=== PATIENT | male | born 1935 | race Caucasian/White ===

== ENCOUNTER 2019-03-19 00:33 | Inpatient (IN) | payer OTHER ==
[~2019-03-19] VITALS: Ht 170.2 cm; Wt 61.6 kg
--- NOTE | ~2019-03-19 | D ---
[facility] [place] [address] DISCHARGE SUMMARY Name: MICHELLE SPRINGER Room #: 354-P ADM IN M.R.#: [id number] Admission: 03/19/19 Attend Phys: Betty Mendieta Discharge: Date of : 39 Report #: [id number] THIS REPORT FOR: //name// CC: James Lynch FINAL DIAGNOSES: 1. Acute hypoxic respiratory failure. 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 4. Rheumatoid arthritis. 5. Hypertension. 6. Debility. HOSPITAL COURSE: The patient was admitted from [facility] facility due to hypoxic respiratory failure. He was requiring high flow nasal cannula oxygen up to 9 liters at one point, CT and x-rays were studied and Pulmonary consultation was obtained in reviewing his history. After evaluation, diagnosis was rheumatoid involvement of the lung causing his hypoxemia. He was treated with high dose IV steroids, which improved his status and his oxygen requirement was weaned down to 4-5 liters. Infectious Disease managed his IV antibiotics in regards to possible superimposed healthcare-associated pneumonia and his ongoing vertebral osteomyelitis from a previous diagnosis and workup at [facility]. He was frustrated about his situation, but otherwise had no other medical complications. PHYSICAL EXAMINATION: GENERAL: On the day of discharge, he is resting in bed with stable vital signs. O2 was at 4 liters. LUNGS: Clear anteriorly. HEART: Regular. ABDOMEN: Soft, normoactive bowel sounds. EXTREMITIES: No edema. DISPOSITION: To be transferred back to [facility] facility under the care of their in-house physician. Diet and activity as tolerated, PT, OT. He will continue cefepime to complete a 42-day course. He is on day approximate 17 today and along with IV vancomycin again for 42-day course, I recommended Pulmonary and Infectious Disease consultation. He will continue IV steroids with a slow taper to oral prednisone. His other medications have been ordered on his transfer list electronically. By: [id number] Todd Almeida MD /nt
[2019-03-19 00:34] VITALS: BP 140/77
[2019-03-19 01:09] LABS: ABSOLUTE NEUTROPHILS 11.2 thou/uL (1.4-8.2); BASOPHILS 0.4 % (0.0-2.0); EOSINOPHILS 0.1 % (0.0-3.0); HEMATOCRIT 23.1 % (42.0-52.0); HEMOGLOBIN 7.3 gm/dL (14.0-18.0); LYMPHOCYTES 3.8 % (24.0-44.0); MCH 28.1 pg (26.0-34.0); MCHC 31.6 g/dL (28.0-37.0); MCV 88.8 fL (80.0-100.0); MONOCYTES 2.3 % (1.0-8.0); PLATELET COUNT 371 thou/uL (150-400); POLYS 93.4 % (36.0-66.0); RDW 20.1 % (10.5-14.5)
[2019-03-19 01:16] LABS: ANION GAP 10 mmol/L (7-16); BUN 43 mg/dL (7-18); CALCIUM 9.2 mg/dL (8.5-10.1); CHLORIDE 105 mmol/L (98-107); CO2 23 mmol/L (21-32); CREATININE 1.4 mg/dL (0.7-1.3); GLUCOSE 176 mg/dL (74-106); POTASSIUM 4.9 mmol/L (3.5-5.1); SODIUM 138 mmol/L (136-145)
[2019-03-19 01:22] LABS: ALBUMIN 1.9 g/dL (3.4-5.0); DIRECT BILIRUBIN < 0.1 mg/dL (<0.1-0.2); SGOT 26 U/L (15-37); SGPT 28 U/L (30-65); TOTAL BILIRUBIN 0.2 mg/dL (<0.1-1.0); TOTAL PROTEIN 6.3 g/dL (6.4-8.2)
[2019-03-19 02:03] LABS: URINE BILIRUBIN NEGATIVE (Negative); URINE BLOOD 1+ (Negative); URINE CLARITY CLEAR; URINE COLOR YELLOW; URINE GLUCOSE-RANDOM* NEGATIVE (Negative); URINE KETONES NEGATIVE (Negative); URINE NITRITE-REFLEX NEGATIVE (Negative); URINE PROTEIN (DIPSTICK) NEGATIVE (Negative); URINE SPECIFIC GRAVITY 1.015 (1.005-1.035); URINE UROBILINOGEN 0.2 E.U./dl (0.2-1.0)
[2019-03-19 02:06] LABS: URINE LEUKOCYTES-REFLEX 1+ (Negative)
[2019-03-19 02:20] LABS: CASTS None Seen /LPF (None Seen); MUCUS 0-3 Light strn/LPF (None Seen); SQUAMOUS 0-3 Few /LPF (0-3); URINE RBC 0-2 Rare /HPF (0-2); URINE WBC-REFLEX 0-5 Rare /HPF (0-5)
[2019-03-19 02:21] LABS: BACTERIA-REFLEX None Seen /HPF (None Seen); CRYSTALS None Seen /LPF (None Seen)
[2019-03-19 07:09] VITALS: BP 124/62
[2019-03-19 07:38] VITALS: BP 130/61
[2019-03-19] MEDS ORDERED: ALPRAZOLAM XR3 MG PO (08:45)
[2019-03-19] MEDS ORDERED: NORVASC 2.5 MG2.5 M1 PO (08:45)
[2019-03-19] MEDS ORDERED: ASA81BEC PO (08:46)
[2019-03-19] MEDS ORDERED: BUSPIRONE HCL15 MG PO (08:46)
[2019-03-19] MEDS ORDERED: PROZAC40 MG PO (08:47)
[2019-03-19] MEDS ORDERED: FLONASE 0.05%50 MCG NARES (08:47)
[2019-03-19] MEDS ORDERED: NEURONTIN100 MG PO (08:47)
[2019-03-19] MEDS ORDERED: MIRALAX119 GM PO (08:48)
[2019-03-19] MEDS ORDERED: SUPER THERAVIT1 EACH PO (08:48)
[2019-03-19] MEDS ORDERED: PROTONIX40 M4 PO (08:48)
[2019-03-19] MEDS ORDERED: RAYOS5 MG PO (08:49)
[2019-03-19] MEDS ORDERED: SENNA8.8 MG/5 M PO (08:50)
[2019-03-19] MEDS ORDERED: VITAMIN B-1100 M2 PO (08:50)
[2019-03-19] MEDS ORDERED: FLOMAX0.4 MG PO (08:50)
[2019-03-19] MEDS ORDERED: ZINC SULFATE220 MG PO (08:52)
--- NOTE | 2019-03-19 12:37 | H ---
[facility] [place] [address] HISTORY AND PHYSICAL Name: MICHELLE SPRINGER Room #: 354-P ADM IN M.R.#: [id number] Admission: 03/19/19 Attend Phys: Betty Mendieta Discharge: Date of : 39 Report #: [id number] THIS REPORT FOR: //name// CC: James Lynch DATE OF SERVICE: 03/19/2019 CHIEF COMPLAINT: Shortness of breath. HISTORY OF PRESENT ILLNESS: The patient is an 83-year-old gentleman who was sent to the Emergency Room from [facility] for evaluation of shortness of breath and hypoxia. He has been in the facility for about 2 weeks or so for continued IV antibiotic therapy for recent diagnosis of diskitis. He began experiencing back pain sometime after Thanksgiving and ultimately was admitted to [facility] at the [facility]. He describes having a needle biopsy of a fluid collection around sounds to be lumbar spine and ultimately was diagnosed with diskitis. He has been receiving IV vancomycin and cefepime and then transferred to the usp unit for continued IV antibiotic therapy. He has been there about 3 weeks and has developed progressive shortness of breath to the point where supplemental oxygen was applied via nasal cannula, but yesterday he was desatting and they had to bump him up to 9 liters high flow nasal cannula. He has had a dry cough, but no mucus production. He denies any fever. He normally does not wear oxygen at home and does not remember wearing oxygen while hospitalized for several weeks at [facility]. He has not had any chest pain, fever or chills. As mentioned, he has been receiving IV antibiotics. He also gives a history of rheumatoid arthritis. He said 2 years ago, he was seeing a amusement park entertainer and had tried various medications over the years for his arthritis. He has tried methotrexate, Remicade and Rituxan among others, all of which caused side effects and really did not seem to impact his arthritis. In the last couple of years, he has been maintained on various doses of prednisone somewhere from 10 to 40 mg a day. PAST MEDICAL HISTORY: Hypertension, rheumatoid arthritis, lumbar spine surgery a year ago, recent spinal diskitis and currently receiving IV antibiotics. PAST SURGICAL HISTORY: As above. FAMILY HISTORY: Noncontributory. SOCIAL HISTORY: He has got a [id number] history of smoking. He says he quit 15 years ago, but still occasionally smokes cigars. He is and lives with his near [place], [place] [address] HISTORY AND PHYSICAL Name: MICHELLE SPRINGER Room #: 354-P [facility] IN ..#: [id number] Admission: 03/19/19 Attend Phys: Betty Mendieta Discharge: Date of : 39 Report #: [id number] ALLERGIES: He describes multiple intolerances to previous medicines for METHOTREXATE. MEDICATIONS: Cefepime, vancomycin, gabapentin, prednisone, amlodipine. REVIEW OF SYSTEMS: He denies headache, chest pain, abdominal pain, nausea, vomiting, diarrhea, constipation, dysuria, syncope. OBJECTIVE: VITAL SIGNS: Temperature 37.1, pulse 79, respirations 16, blood pressure 130/61, O2 sat 97% on 5 liters nasal cannula. GENERAL: He is awake and alert, lying in bed, in no distress. HEAD AND NECK: Unremarkable. LUNGS: He has some faint expiratory wheezing. HEART: Regular, no murmur. ABDOMEN: Soft, normoactive bowel sounds. EXTREMITIES: No edema. He has ulnar deformity of the MCP joints bilaterally on both hands. NEUROLOGIC: Cranial nerves intact. Speech is fluent. He is alert and oriented. LABORATORY REVIEW: Influenza was negative. White count 12, hemoglobin 7.3, creatinine 1.4. Other chemistry unremarkable. Albumin 1.9. IMAGING: CT of the chest shows bilateral pleural effusions, left greater than right. There are septal thickening and ground glass opacities in both lungs, especially at the apices. ASSESSMENT: 1. Acute hypoxic respiratory failure. 2. Diskitis, currently on IV antibiotics. 3. Rheumatoid arthritis. 4. Hypertension. 5. Anemia of chronic disease. 6. Severe protein-calorie malnutrition. 7. Acute kidney injury. PLAN: I will ask ID and Pulmonary services to follow him for consideration of infectious process, although he has been receiving broad coverage IV antibiotics and it seems to make a bacterial pneumonia less likely. Other consideration would be pulmonary edema, although he does not give any cardiac history or rheumatoid arthritis involvement of his lungs. His antibiotics will continue. He has had full cultures. Lovenox for DVT prophylaxis will be added and I have [address] [address] HISTORY AND PHYSICAL Name: MICHELLE SPRINGER Room #: 354-P [facility] IN M.R.#: [id number] Admission: 03/19/19 Attend Phys: Betty Mendieta Discharge: Date of : 39 Report #: [id number] steroids and we will give him a dose of Lasix as well. Echocardiogram is ordered. <ELECTRONICALLY SIGNED> By: Todd Almeida MD 03/19/19 [id number] Todd Almeida MD /nt
[2019-03-19 16:00] VITALS: BP 125/68
[2019-03-19 19:45] VITALS: BP 116/73
[2019-03-19] MEDS ORDERED: TRAMADOL 50 MG50 MG PO (23:13)
[2019-03-19 23:41] VITALS: BP 135/58
[2019-03-20 03:44] VITALS: BP 145/62
[2019-03-20 05:50] LABS: HEMATOCRIT 21.6 % (42.0-52.0); HEMOGLOBIN 6.8 gm/dL (14.0-18.0); MCHC 31.7 g/dL (28.0-37.0)
[2019-03-20 05:51] LABS: MCH 27.8 pg (26.0-34.0); MCV 87.7 fL (80.0-100.0); RBC 2.46 mil/uL (4.50-6.00); RDW 19.4 % (10.5-14.5); WBC 11.5 thou/uL (4.0-11.0)
[2019-03-20 05:53] LABS: CALCIUM 9.1 mg/dL (8.5-10.1); CREATININE 1.4 mg/dL (0.7-1.3); POTASSIUM 3.8 mmol/L (3.5-5.1)
[2019-03-20 07:56] VITALS: BP 144/75
--- NOTE | 2019-03-20 08:48 | 2DMMODE ---
[facility] Denzel [email or web address] [address] 2 D/M-MODE ECHOCARDIOGRAM Name: SPRINGERMICHELLE Room #: 354-P [facility] IN M.R.#: [id number] Admission: 03/19/19 Attend Phys: Dustin Ruiz Discharge: Date of : 39 Report #: [id number] THIS REPORT FOR: //name// APPROVED REPORT Study performed: 03/20/2019 07:28:04 EXAM: Comprehensive 2D, Doppler, and color-flow Echocardiogram Patient Location: Bedside Room #: 354 Status: routine BSA: 1.71 HR: 82 bpm BP: 145/62 mmHg Rhythm: NSR Indications Short of breath, pneumonia, pleural effusions. 2D Dimensions RVDd: 35.18 mm IVSd: 12.48 (7-11mm) LVOT Diam: 23.43 (18-24mm) LVDd: 41.45 mm PWd: 11.36 (7-11mm) Ascending Ao: 36.78 (22-36mm) LVDs: 25.86 (25-40mm) Aortic Root: 36.14 mm Volumes Left Atrial Volume (Systole) Single Plane 4CH: 36.11 mL Single Plane 2CH: 54.45 mL LA ESV Index: 31.00 mL/m2 Aortic Valve AoV Peak Bon.: 1.76 m/s AO Peak Gr.: 13.23 mmHg LVOT Max P.52 mmHg LVOT Max V: 1.06 m/s BRAEDEN Vmax: 2.60 cm2 Mitral Valve E/A Ratio: 0.7 MV Decel. Time: 185.98 ms MV E Max Bon.: 1.04 m/s MV A Bon.: 1.50 m/s MV PHT: 53.94 ms IVRT: 65.74 ms [facility] [place] [address] 2 D/M-MODE ECHOCARDIOGRAM Name: MICHELLE SPRINGER [facility]: [facility] IN M.R.#: [id number] Admission: 03/19/19 Attend Phys: Dustin Ruiz Discharge: Date of : 39 Report #: [id number] Pulmonary Valve PV Peak Bon.: 1.12 m/s PV Peak Gr.: 5.02 mmHg Pulmonary Vein P Vein S: 0.79 m/s P Vein A: 0.37 m/s P Vein D: 0.48 m/s P Vein A Dur.: 96.9 msec P Vein S/D Ratio: 1.65 Tricuspid Valve TR Peak Bon.: 2.45 m/s RAP Estimate: 10.00 mmHg TR Peak Gr.: 24.00 mmHg PA Pressure: 34.00 mmHg Left Ventricle The left ventricle is normal size. There is normal LV segmental wall motion. Mild basal septal hypertrophy is present. Left ventricular systolic function is normal. LVEF is 60-65%. Mild diastolic dysfunction is present (impaired relaxation pattern). Right Ventricle The right ventricle is normal size. The right ventricular systolic function is normal. Atria The left atrium size is normal. The right atrium size is normal. Aortic Valve Aortic valve leaflets are thickened and calcified. Trace aortic regurgitation. There is no aortic valvular stenosis. Mitral Valve Mild mitral annular calcification. Mild mitral regurgitation. Tricuspid Valve The tricuspid valve is normal in structure. Trace tricuspid regurgitation. Estimated PAP is 30-35mmHg. Pulmonic Valve The pulmonary valve is normal in structure. There is no pulmonic valvular regurgitation. Great Vessels The aortic root is normal in size. The ascending aorta is normal in [facility] [address] [place] [address] 2 D/M-MODE ECHOCARDIOGRAM Name: MICHELLE SPRINGER Room #: 354-P [facility] IN .R.#: [id number] Admission: 03/19/19 Attend Phys: Dustin Ruiz Discharge: Date of : 39 Report #: [id number] size. IVC is dilated and collapses <50% with inspiration. Pericardium There is no pericardial effusion. <Conclusion> Left ventricular systolic function is normal. There is normal LV segmental wall motion. LVEF is 60-65%. Mild diastolic dysfunction Aortic valve leaflets are thickened and calcified. Trace aortic regurgitation, no stenosis. Mild mitral annular calcification. Mild mitral regurgitation. Trace tricuspid regurgitation. Estimated pulmonary artery pressure of 30-35mmHg. There is no pericardial effusion. <ELECTRONICALLY SIGNED> By: Raheem Roper MD, FACC 03/20/19847 7 7 Raheem Roper MD, FACC /INF
[2019-03-20 15:15] VITALS: BP 132/65
[2019-03-20 19:35] VITALS: BP 121/56
[2019-03-21 04:30] VITALS: BP 130/77
[2019-03-21 07:18] LABS: HEMOGLOBIN 6.9 gm/dL (14.0-18.0)
[2019-03-21 07:19] LABS: ABSOLUTE NEUTROPHILS 13.2 thou/uL (1.4-8.2); BASOPHILS 0.3 % (0.0-2.0); HEMATOCRIT 21.8 % (42.0-52.0); MCHC 31.6 g/dL (28.0-37.0); MCV 88.5 fL (80.0-100.0); MONOCYTES 3.9 % (1.0-8.0); PLATELET COUNT 407 thou/uL (150-400); POLYS 91.8 % (36.0-66.0); RBC 2.46 mil/uL (4.50-6.00); RDW 19.9 % (10.5-14.5); WBC 14.4 thou/uL (4.0-11.0)
[2019-03-21 07:26] VITALS: BP 152/70
[2019-03-21 07:42] LABS: CALCIUM 9.1 mg/dL (8.5-10.1); CREATININE 1.3 mg/dL (0.7-1.3); POTASSIUM 3.6 mmol/L (3.5-5.1)
[2019-03-21 16:06] VITALS: BP 131/65
[2019-03-21 20:34] VITALS: BP 144/66
[2019-03-21 22:06] LABS: ADENOVIRUS Negative (Negative); INFLUENZA A Negative (Negative); INFLUENZA B Negative (Negative); METAPNEUMOVIRUS Negative (Negative); PARAINFLUENZA 1 Negative (Negative); PARAINFLUENZA 2 Negative (Negative); PARAINFLUENZA 3 Negative (Negative); RHINOVIRUS Negative (Negative); RSV A Negative (Negative); RSV B Negative (Negative)
[2019-03-21 22:06] LABS: ADENOVIRUS Negative (Negative); INFLUENZA A Negative (Negative); INFLUENZA B Negative (Negative); METAPNEUMOVIRUS Negative (Negative); PARAINFLUENZA 1 Negative (Negative); PARAINFLUENZA 2 Negative (Negative); PARAINFLUENZA 3 Negative (Negative); RHINOVIRUS Negative (Negative); RSV A Negative (Negative); RSV B Negative (Negative)
[2019-03-22 04:59] VITALS: BP 150/71
[2019-03-22 07:52] VITALS: BP 165/75
[2019-03-22 13:14] VITALS: BP 144/74; BP 149/82
[2019-03-22 16:41] VITALS: BP 158/76
[2019-03-22 17:07] LABS: HEMATOCRIT 27.8 % (42.0-52.0)
[2019-03-22 17:17] LABS: HEMOGLOBIN 8.9 gm/dL (14.0-18.0)
[2019-03-22 19:25] VITALS: BP 147/71
[2019-03-23 05:13] VITALS: BP 154/77
[2019-03-23 06:29] LABS: HEMATOCRIT 26.3 % (42.0-52.0); HEMOGLOBIN 8.6 gm/dL (14.0-18.0); MCH 28.6 pg (26.0-34.0); MCHC 32.8 g/dL (28.0-37.0); MCV 87.3 fL (80.0-100.0); RBC 3.01 mil/uL (4.50-6.00); RDW 18.6 % (10.5-14.5); WBC 13.9 thou/uL (4.0-11.0)
[2019-03-23 06:45] LABS: CALCIUM 8.9 mg/dL (8.5-10.1); CREATININE 1.1 mg/dL (0.7-1.3); POTASSIUM 4.6 mmol/L (3.5-5.1)
[2019-03-23 08:17] VITALS: BP 162/87
[2019-03-23] MEDS ORDERED: CEFEPIME 1 GM VI1 G2 IV (11:35)
[2019-03-23] MEDS ORDERED: VANCOMYCIN HCL250 MG IV (11:37)
[2019-03-23] MEDS ORDERED: ENOXAPARIN40 MG/0.1 SUBQ (11:37)
[2019-03-23] MEDS ORDERED: MUCINEX600 MG PO (11:37)
[2019-03-23] MEDS ORDERED: SOLU-MEDRO40 MG/1 M1 IV PUSH (11:38)
== END 2019-03-23 19:15 | DRG 193 ==
LOC: ER 00:33 → EROBS 03:40 → 3W 03:40
PROVIDERS: Emergency Medicine; Internal Medicine; Internal Medicine Geriatric Medicine; Specialist; ADMIT Internal Medicine
PROC: 30233N1 Transfusion of Nonautologous Red Blood Cells into Peripheral Vein, Percutaneous Approach (ICD-10-PCS; principal; 2019-03-22)
DX: J18.9 Pneumonia, unspecified organism (principal); J96.01 Acute respiratory failure with hypoxia; E43 Unspecified severe protein-calorie malnutrition; N17.9 Acute kidney failure, unspecified; M46.20 Osteomyelitis of vertebra, site unspecified; M46.40 Discitis, unspecified, site unspecified; M06.9 Rheumatoid arthritis, unspecified; I12.9 Hypertensive chronic kidney disease with stage 1 through stage 4 chronic kidney disease, or unspecified chronic kidney disease; D63.8 Anemia in other chronic diseases classified elsewhere; B95.62 Methicillin resistant Staphylococcus aureus infection as the cause of diseases classified elsewhere; D72.829 Elevated white blood cell count, unspecified; N18.9 Chronic kidney disease, unspecified; F32.9 Major depressive disorder, single episode, unspecified; F41.9 Anxiety disorder, unspecified; Z87.891 Personal history of nicotine dependence; Z68.21 Body mass index [BMI] 21.0-21.9, adult; Z88.8 Allergy status to other drugs, medicaments and biological substances; Z91.02 Food additives allergy status; Z79.82 Long term (current) use of aspirin; Z79.899 Other long term (current) drug therapy
CPT/HCPCS: 10879